=== PATIENT | male | born 1990 | race Two or more races ===

== ENCOUNTER 2019-03-16 01:59 | Emergency (ER) | payer OTHER ==
[~2019-03-16] VITALS: Ht 180.3 cm; Wt 86.2 kg
== END 2019-03-16 02:53 | disposition home or self-care (01) ==
LOC: ER 01:59
DX: S01.111A Laceration without foreign body of right eyelid and periocular area, initial encounter (principal); W18.09XA Striking against other object with subsequent fall, initial encounter; Y93.89 Activity, other specified; Y92.413 State road as the place of occurrence of the external cause; Y99.8 Other external cause status